=== PATIENT | female | born 1965 | race Two or more races ===

== ENCOUNTER 2016-08-15 09:18 | Emergency (ER) | payer OTHER ==
--- NOTE | 2016-08-15 09:33 | PDOC ---
History of Present Illness - General History Source: Patient Exam Limitations: No Limitations - History of Present Illness Initial Comments: 08/15/16 09:58 The patient is a 51 year old female, with a significant past medical history of anemia and depression who presents to the emergency department s/p mechanical fall, occurring today. The patient reports slipping and falling outside while going to work. She reports after falling being able to ambulate and went to work , feeling her regular baseline. She denies any head trauma. She notes after the fall feeling dizzy and having numbness/tingling in her upper extremities, lying down with no alleviation and worsening of her symptoms. 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 She reports as a result of the fall also having a mild diffuse headache accompanied with lightheadedness and numbness /tingling in her LEs and UEs. She ranks her headache pain a 7/10 in pain intensity. She denies any recent travel. She denies recent fever, chills, and dizziness. She denies recent nausea, vomit, diarrhea and constipation. Allergies: NKA Past surgical history: Breast Augmentation Social history: Nonsmoker. Denies EtOH and drug use. PCP: Natalia Ramirez <Osman Batista - Last Filed: 08/15/16 11:23> - General History Source: Patient Exam Limitations: No Limitations <oLis Uribe - Last Filed: 08/15/16 11:36> - General Stated Complaint: FALL Past History <Osman Batista - Last Filed: 08/15/16 11:23> - Past Medical History Asthma: No Diabetes: No HTN: No Hypercholesterolemia: No - Psycho/Social/Smoking Cessation Hx Anxiety: No Suicidal Ideation: No Smoking Status: No Smoking History: Never smoked Number of Cigarettes Smoked Daily: 0 Hx Alcohol Use: No Drug/Substance Use Hx: No Substance Use Type: None <Lois Uribe - Last Filed: 08/15/16 11:36> - Past Medical History Allergies/Adverse Reactions: Allergies Allergy/AdvReac Type Severity Reaction Status Date / Time No Known Allergies Allergy Verified 08/15/16 09:36 Home Medications: Ambulatory Orders NK [No Known Home Medication] 08/15/16 Review of Systems - Review of Systems Able to Perform ROS?: Yes Comments:: 08/15/16 09:58 GENERAL/CONSTITUTIONAL: No: fever, chills, weakness, loss of appetite. HEAD, EYES, EARS, NOSE AND THROAT: No: change in vision, ear pain, discharge, sore throat, throat swelling. CARDIOVASCULAR: No: chest pain, lightheadedness, palpitations, syncope RESPIRATORY: No: cough, shortness of breath, wheezing, hemoptysis, stridor. GASTROINTESTINAL: No: nausea, vomiting, diarrhea, abdominal cramping, rectal bleeding, constipation. GENITOURINARY: No: dysuria, hematuria, frequency, urgency, flank pain. MUSCULOSKELETAL: No: back pain, neck pain, joint pain, muscle swelling or pain SKIN : No: lesions, pallor, rash or easy bruising. NEUROLOGIC: Yes: headache, dizzy, and lightheaded. No: paresthesias, weakness ENDOCRINE: No: unexplained weight gain or loss HEMATOLOGIC/LYMPHATIC: No: anemia, easy bleeding, swelling nodes. <Osman Batista - Last Filed: 08/15/16 11:23> *Physical Exam - Vital Signs Last Vital Signs Temp Pulse Resp BP Pulse Ox 97.7 F 62 18 124/87 100 08/15/16 09:33 08/15/16 09:33 08/15/16 09:33 08/15/16 09:33 08/15/16 09:33 - Physical Exam Comments: 08/15/16 09:58 GENERAL: The patient is in no acute distress. HEAD: Normal with no signs of trauma. EYES: PERRLA, EOMI, sclera anicteric, conjunctiva clear. ENT: Ears normal, nares patent, oropharynx clear without exudates. Moist mucous membranes. NECK: Normal range of motion, supple without lymphadenopathy, JVD, or masses. LUNGS: Breath sounds equal, clear to auscultation bilaterally. No wheezes, and no crackles. HEART: Regular rate and rhythm, normal S1 and S2 without murmur, rub or gallop. ABDOMEN: Soft, nontender, normoactive bowel sounds. No guarding, no rebound. No masses palpable. EXTREMITIES: Normal range of motion, no edema. No clubbing or cyanosis. No erythema, or tenderness. NEUROLOGICAL: Cranial nerves II through XII grossly intact. Normal speech. No focal neurological deficits. MUSCULOSKELETAL: Mild lumbar tenderness, no CVA tenderness SKIN: Warm, Dry, normal turgor, no rashes or lesions noted. <Osman Batista - Last Filed: 08/15/16 11:23> Heart Score/ECG Review #1 ECG reviewed & interpreted by me at: 09:57 General ECG Interpretation: Sinus Rhythm, Normal Rate, Normal Intervals, No acute ischemic changes <Lois Uribe - Last Filed: 08/15/16 11:36> ED Treatment Course - LABORATORY CBC & Chemistry Diagram: 08/15/16 10:00 08/15/16 10:00 - RADIOLOGY Radiograph Interpretation: 08/15/16 11:[address] WITHOUT CONTRAST impressions reported by : Mild volume loss without evidence of acute intracranial pathology. <Osman Batista - Last Filed: 08/15/16 11:23> - LABORATORY CBC & Chemistry Diagram: 08/15/16 10:00 08/15/16 10:00 <Lois Uribe - Last Filed: 08/15/16 11:36> Medical Decision Making - Medical Decision Making 08/15/16 09:33 A portion of this note was documented by scribe services under my direction. I have reviewed the details of the note, within reason, and agree with the documentation with the following case summary and management plan written by me. Nursing documentation reviewed and incorporated into medical decision making 08/15/16 09:51 This is a 51-year-old female with no history of diabetes, hypertension, hyperlipidemia, heart disease, tobacco use who presents emergency department with a complaint of persistent dizziness status post a fall this morning. Patient states she was in route to work when she slipped and fell on the sidewalk. She was able to get up and reported to work. She did know that she was very dizzy (not vertiginous) when she arrived at work. 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 She went to the office and felt worse She laid down and felt more dizzy She noted that she had numbness around her mouth, arms, legs Possible loss of consciousness x 2 08/15/16 09:52 Will do basic labs (r/o electrolyte abn) Will do carboxyhemoglobin (r/o CO poisoning given pt was in the garage when she became more dizzy) Will do CT head (unlikely ICH, but pt fell this morning and reports LOC) Likely pt is concussed 08/15/16 10:53 Laboratory Tests 08/15/16 08/15/16 08/15/16 10:00 10:00 10:00 WBC 11.0 H Hgb 13.4 Hct 41.9 Plt Count 333 Neutrophils % 80.8 Lymphocytes % 13.2 ABG pH ABG pCO2 at Pt Temp ABG pO2 at Pt Temp ABG HCO3 BUN 17 Creatinine 0.8 Creatine Kinase 89 Troponin I < 0.02 Serum , Qual Negative 08/15/16 10:15 WBC Hgb Hct Plt Count Neutrophils % Lymphocytes % ABG pH 7.45 ABG pCO2 at Pt Temp 36.0 ABG pO2 at Pt Temp 105.0 H ABG HCO3 24.9 BUN Creatinine Creatine Kinase Troponin I Serum , Qual Awaiting CT Pt states she feels better 08/15/16 11:35 CT head: negative for acute ICH Will: Discharge to home Follow up with PMD <Lois Uribe - Last Filed: 08/15/16 11:36> *DC/Admit/Observation/Transfer - Attestations Scribe Attestion: 08/15/16 09:59 Documentation prepared by Osman Batista, acting as medical pathologist for Lois Uribe MD. <Osman Batista - Last Filed: 08/15/16 11:23> - Discharge Dispostion Admit: No <Lois Uribe - Last Filed: 08/15/16 11:36> Diagnosis at time of Disposition: Fall from standing Qualifiers: Encounter type: initial encounter Qualified Code(s): W19.XXXA - Unspecified fall, initial encounter Head trauma Qualifiers: Encounter type: initial encounter Qualified Code(s): S09.90XA - Unspecified injury of head, initial encounter Concussion Qualifiers: Encounter type: initial encounter Loss of consciousness presence/duration: with LOC of 30 min or less Qualified Code(s): S06.0X1A - Concussion with loss of consciousness of 30 minutes or less, initial encounter - Discharge Dispostion Disposition: HOME Condition at time of disposition: Improved - Referrals Referrals: Natalia Ramirez [Primary Care Provider] - - Patient Instructions Printed Discharge Instructions: DI for Closed Head Injury Additional Instructions: Rachel Thank you for coming in to the ER today Your labs are normal Your CT scan is normal You may have a concussion, causing you to feel dizzy Please follow up with your primary care physician Return to the ER for any other concerns or complaints - Post Discharge Activity Work/School Note: Back to Work
[2016-08-15 09:39] VITALS: TEMP 97.7; BMI 27.4
[2016-08-15] MEDS ORDERED: ACETAMINOPHEN 325 MG TABLET (FP) PO ONE (09:48)
[2016-08-15] MEDS ORDERED: ACETAMINOPHEN 325 MG TABLET (FP) ONE (10:00)
[2016-08-15 10:16] LABS: ARTERIAL BLD GAS O2 SATURATION 98.3 % (90-98.9); ARTERIAL BLOOD GAS BASE EXCESS 1.7 meq/l (-2-2); ARTERIAL BLOOD GAS HCO3 24.9 meq/L (22-26); ARTERIAL BLOOD GAS pH 7.45 (7.35-7.45)
[2016-08-15 10:17] LABS: ALLENS TEST POSITIVE; ART PUNCT SITE LEFT BRACHIAL; LPM/O2% N; METHEMOGLOBIN 1.2 % (0.4-1.5); PT. ON O2? NO; TYPE OF O2 R/A
[2016-08-15 10:20] LABS: BASOPHIL 0.4 % (0-2.0); EOSINOPHIL 0.1 % (0-4.5); MCH 24.5 pg (25.7-33.7); MEAN CELL VOLUME 76.4 fl (80-96); MEAN PLT VOLUME 8.3 fl (7.5-11.1); NEUTROPHILS 80.8 % (42.8-82.8); PLATELET COUNT 333 K/MM3 (134-434); RDW 18.8 % (11.6-15.6)
[2016-08-15 10:35] LABS: ALBUMIN 4.1 g/dl (3.4-5.0); ANION GAP 12 (8-16); BILIRUBIN,TOTAL 0.3 mg/dL (0.2-1.0); CALCIUM 9.5 mg/dL (8.5-10.1); CO2 28 mmol/L (21-32); CREATININE 0.8 mg/dL (0.55-1.02); GLUCOSE,RANDOM 97 mg/dL (74-106); SGOT/AST 15 U/L (15-37); SGPT/ALT 19 U/L (12-78); TOT PROT 8.1 g/dl (6.4-8.2)
[2016-08-15 10:37] LABS: ALK PHOS 73 U/L (45-117); TROPONIN I < 0.02 ng/ml (0.00-0.05)
[2016-08-15 12:07] VITALS: BP 123/78; PULSE 70
--- NOTE | 2016-08-15 15:48 | EKG ---
Test Reason : Blood Pressure : / mmHG Vent. Rate : 066 BPM Atrial Rate : 066 BPM P-R Int : 142 ms QRS Dur : 084 ms QT Int : 388 ms P-R-T Axes : 025 038 024 degrees QTc Int : 406 ms NORMAL SINUS RHYTHM NORMAL ECG NO PREVIOUS ECGS AVAILABLE Confirmed by EDWARD CEDENO MD ([id number]) on 08/15/2016 3:48:23 PM Referred By: Confirmed By:EDWARD CEDENO MD
== END 2016-08-15 12:07 | disposition home or self-care (01) ==
LOC: JER 09:18
DX: S06.0X1A Concussion with loss of consciousness of 30 minutes or less, initial encounter (principal); W18.30XA Fall on same level, unspecified, initial encounter; Y93.01 Activity, walking, marching and hiking; Y92.410 Unspecified street and highway as the place of occurrence of the external cause
CPT/HCPCS: 36415; 36600; 70450-TC; 80053; 82375; 82550; 82803; 83050; 84484; 84703; 85025; 93005; 93010; 99283-25

== ENCOUNTER 2017-06-21 18:45 | Emergency (ER) | payer OTHER ==
[2017-06-21 18:57] VITALS: BP 150/82; PULSE 82; TEMP 100.3; BMI 28.3
--- NOTE | 2017-06-21 21:14 | PDOC ---
History of Present Illness - General History Source: Patient Exam Limitations: No Limitations - History of Present Illness Initial Comments: 06/21/17 22:44 Patient is a 51 year old female with a significant past medical history of anemia and depression who presents to the ED with complaints of fever and throat pain that began 6 days ago. Patient reports experiencing sudden onset of fever and throat pain 6 days ago while at home with no signs of subsiding. She reports taking advil for pain with no relief. Patient reports experiencing left flank pain 4 days ago suddenly while at home. She states left flank pain is a constant non radiating sharp 9/10 pain, but is unsure if it is related to her fever and throat symptoms. Patient reports experiencing dark urine and urinary frequency that prompted her to come to the ED for further evaluation. Denies chest pain, SOB. Denies nausea, vomiting. Denies fevers chills. Denies out of state travel. Denies any other symptoms. Allergies: None Surgical history: Breast Augmentation Social history: No smoking. No alcohol. No illicit drugs. PMD: Dr. Natalia Ramirez <Mike Bingham - Last Filed: 06/21/17 22:44> <Kenia Francis - Last Filed: 06/22/17 04:58> - General Chief Complaint: Pain Stated Complaint: HEADACHE Time Seen by Provider: 06/21/17 20:27 Past History <Mike Bingham - Last Filed: 06/21/17 22:44> - Past Medical History Anemia: Yes Asthma: No COPD: No Diabetes: No HTN: No Hypercholesterolemia: No Psychiatric Problems: Yes (h/o Depression) - Suicide/Smoking/Psychosocial Hx Smoking Status: No Smoking History: Never smoked Number of Cigarettes Smoked Daily: 0 Hx Alcohol Use: No Drug/Substance Use Hx: No Substance Use Type: None <Kenia Francis - Last Filed: 06/22/17 04:58> - Past Medical History Allergies/Adverse Reactions: Allergies Allergy/AdvReac Type Severity Reaction Status Date / Time No Known Allergies Allergy Verified 06/21/17 18:57 Home Medications: Ambulatory Orders Nitrofurantoin Monohyd/M-Cryst [Macrobid -] 100 mg PO BID #14 capsule 06/21/17 Gentamicin 0.3% Eye Drops - 1 drop OS Q3H #1 dropsbtl 12/18/17 Review of Systems - Review of Systems Able to Perform ROS?: Yes Comments:: 06/21/17 22:44 GENERAL/CONSTITUTIONAL: +Fever No chills. No weakness. HEAD, EYES, EARS, NOSE AND THROAT: +Throat pain. No change in vision. No ear pain or discharge. CARDIOVASCULAR: No chest pain or shortness of breath. RESPIRATORY: No cough, wheezing, or hemoptysis. GASTROINTESTINAL: No nausea, vomiting, diarrhea or constipation. GENITOURINARY: +Urinary frequency. No dysuria, change in urination. MUSCULOSKELETAL: +Left flank pain. No joint or muscle swelling.. No neck or back pain. SKIN: No rash NEUROLOGIC: No headache, vertigo, loss of consciousness, or change in strength/ sensation. ENDOCRINE: No increased thirst. No abnormal weight change. HEMATOLOGIC/LYMPHATIC: No anemia, easy bleeding, or history of blood clots. ALLERGIC/IMMUNOLOGIC: No hives or skin allergy. All Other Systems: Reviewed and Negative <Mike Bingham - Last Filed: 06/21/17 22:44> *Physical Exam - Vital Signs Last Vital Signs Temp Pulse Resp BP Pulse Ox 100.3 F H 82 20 150/82 100 06/21/17 18:54 06/21/17 18:54 06/21/17 18:54 06/21/17 18:54 06/21/17 18:54 - Physical Exam Comments: 06/21/17 22:44 GENERAL: Awake, alert, and fully oriented, in no acute distress HEAD: No signs of trauma EYES: +Left eye redness sclera anicteric, ENT: Auricles normal inspection, hearing grossly normal, nares patent, oropharynx clear without exudates. Moist mucosa NECK: Normal ROM, supple, no lymphadenopathy, JVD, or masses LUNGS: Breath sounds equal, clear to auscultation bilaterally. No wheezes, and no crackles HEART: Regular rate and rhythm, normal S1 and S2, no murmurs, rubs or gallops ABDOMEN: +Minimal left flank tenderness., (Patient improving with IV tylenol given) Soft, nontender, normoactive bowel sounds. No guarding, no rebound. No masses EXTREMITIES: Normal range of motion, no edema. No clubbing or cyanosis. No cords, erythema, or tenderness NEUROLOGICAL: Cranial nerves II through XII grossly intact. Normal speech, normal gait SKIN: Warm, Dry, normal turgor, no rashes or lesions noted. <ZacheryMike - Last Filed: 06/21/17 22:44> - Vital Signs Last Vital Signs Temp Pulse Resp BP Pulse Ox 100.3 F H 82 20 150/82 100 06/21/17 18:54 06/21/17 18:54 06/21/17 18:54 06/21/17 18:54 06/21/17 18:54 <Kenia Francis - Last Filed: 06/22/17 04:58> ED Treatment Course - LABORATORY CBC & Chemistry Diagram: 06/21/17 21:45 06/21/17 21:45 - ADDITIONAL ORDERS Additional order review: Laboratory Results 06/21/17 06/21/17 21:45 21:34 Sodium Cancelled Potassium Cancelled Chloride Cancelled Carbon Dioxide Cancelled Anion Gap Cancelled BUN Cancelled Creatinine Cancelled Creat Clearance w eGFR Cancelled Random Glucose Cancelled Calcium Cancelled Total Bilirubin Cancelled AST Cancelled ALT Cancelled Alkaline Phosphatase Cancelled Total Protein Cancelled Albumin Cancelled Urine Color Yellow Urine Appearance Slcloudy Urine pH 6.0 Ur Specific [place] 1.023 Urine Protein 1+ H Urine Glucose (UA) Negative Urine Ketones Negative Urine Blood 1+ H Urine Nitrite Negative Urine Bilirubin Negative Urine Urobilinogen 2.0 H Urine WBC (Auto) 20 Urine RBC (Auto) 13 Ur Epithelial Cells Rare Hyaline Casts 2 Urine Mucus Many 06/21/17 21:45 Influenza Types A,B Antigen (ERIKA) - Final Nasopharyngeal Swab - Final 06/21/17 21:45 RBC 5.00 MCV 76.7 L MCHC 31.4 L RDW 15.9 H D MPV 7.7 Neutrophils % 58.6 D Lymphocytes % 31.3 D Monocytes % 8.2 Eosinophils % 0.6 D Basophils % 1.3 D - Medications Given in the ED: ED Medications Discontinued Medications Generic Name Dose Route Start Last Admin Trade Name Shahla PRN Reason Stop Dose Admin Acetaminophen 1,000 mg 06/21/17 21:18 06/21/17 21:44 Ofirmev Injection - IVPB 06/21/17 21:19 1,000 mg ONCE ONE Administration Sodium Chloride 500 ml 06/21/17 21:18 06/21/17 21:44 Normal Saline - IV 06/21/17 21:19 500 ml ONCE ONE Administration <Mike Bingham - Last Filed: 06/21/17 22:44> - LABORATORY CBC & Chemistry Diagram: 06/21/17 21:45 06/21/17 22:50 <Kenia Francis - Last Filed: 06/22/17 04:58> Medical Decision Making - Medical Decision Making 06/21/17 22:24 Pt comes with fever and abd pain of lower abd that began 2 weeks ago. She states that she was taking pain meds x 1 week without relief. Now she comes because she feels unwell and weak. She has flu like symptoms. She states that her 18 yo son has a sore throat and flu like symptoms. Pt has negative flu culture here. Her exam is normal, only left sided pink eye and she has a minimal left flank pain 06/22/17 02:27 Patient Name: MANNY HANSEN THIS IS A PRELIMINARY REPORT FROM [facility] DATE OF SERVICE: 2017-06-22 00:29:33 IMAGES: 465 EXAM: CT ABDOMEN AND PELVIS WITHOUT CONTRAST No nephrolithiasis, ureterolithiasis or obstructive uropathy. No bladder calculi. Unremarkable pancreas and gallbladder. No bowel obstruction, colitis, free fluid or free air. Normal appendix. Leiomyomatous uterus. Stranding in prepubic/inguinal canal soft tissues, possibly subcutaneous edema. Bilateral breast implants 06/22/17 02:32 Pt's skin and soft tissue in the inguinal and prepupica area is normal; no rash ; no redness; no cellulitis; no pain with palpation. 06/22/17 04:56 Pt feeling vastly improved; ready to go home. <Kenia Francis - Last Filed: 06/22/17 04:58> *DC/Admit/Observation/Transfer - Attestations Scribe Attestion: 06/21/17 22:45 Documentation prepared by Mike Bingham, acting as medical scientific liaison for Kenia Francis MD/DO. <Mike Bingham - Last Filed: 06/21/17 22:44> - Discharge Dispostion Admit: No <Kenia Francis - Last Filed: 06/22/17 04:58> Diagnosis at time of Disposition: UTI (urinary tract infection), Conjunctivitis - Discharge Dispostion Disposition: HOME Condition at time of disposition: Stable - Prescriptions Prescriptions: Nitrofurantoin Monohyd/M-Cryst [Macrobid -] 100 mg PO BID #14 capsule - Referrals Referrals: Natalia Ramirez [Primary Care Provider] - Zack Bryant MD [Staff Physician] - - Patient Instructions Printed Discharge Instructions: Urinary Tract Infection, Conjunctivitis - Post Discharge Activity Forms/Work/School Notes: Back to Work
[2017-06-21] MEDS ORDERED: SODIUM CHLORIDE 0.9% 500 ML INFUS.BAG IV ONE (21:18)
[2017-06-21] MEDS ORDERED: ACETAMINOPHEN 1000 MG/100 ML VIAL (NON FORMULARY) IVPB ONE (21:18)
[2017-06-21] MEDS ORDERED: ACETAMINOPHEN INJECTION 100 ML IVPB ONE (21:27)
[2017-06-21 21:51] LABS: BASO % 1.3 % (0-2.0); EOS % 0.6 % (0-4.5); MCH 24.1 pg (25.7-33.7); MCHC 31.4 g/dl (32.0-36.0); MEAN CELL VOLUME 76.7 fl (80-96); MEAN PLT VOLUME 7.7 fl (7.5-11.1); NEUT % 58.6 % (42.8-82.8); PLATELET COUNT 445 K/MM3 (134-434); RDW 15.9 % (11.6-15.6); WHITE BLOOD COUNT 12.3 K/mm3 (4.0-10.0)
[2017-06-21 21:51] LABS: URINE APPEARANCE SLCLOUDY; URINE BILIRUBIN NEGATIVE (NEGATIVE); URINE BLOOD 1+ (NEGATIVE); URINE COLOR YELLOW; URINE GLUCOSE (UA) NEGATIVE (NEGATIVE); URINE KETONE NEGATIVE (NEGATIVE); URINE NITRITE NEGATIVE (NEGATIVE)
[2017-06-21 21:53] LABS: URINE LEUK ESTERASE 2+ (NEGATIVE); URINE PROTEIN 1+ (NEGATIVE)
[2017-06-21 21:54] LABS: URINE HYALINE CAST 2 /lpf; URINE MUCUS MANY; URINE RBC 13 /hpf (0-3); URINE WBC 20 /hpf (3-5)
[2017-06-21] MEDS ORDERED: CEFTRIAXONE 1,000 MG in DEXTROSE 5%-WATER - 50 ML IVPB ONE (21:58)
[2017-06-21] MEDS ORDERED: CEFTRIAXONE 1 GM/50 ML BAG ONE (22:40)
[2017-06-21 23:19] LABS: ANION GAP 7 (8-16); BILIRUBIN,TOTAL 0.3 mg/dL (0.2-1.0); CO2 23 mmol/L (21-32); CREATININE 0.7 mg/dL (0.55-1.02); GLUCOSE,RANDOM 98 mg/dL (74-106); SGPT/ALT 16 U/L (12-78); TOT PROT 6.9 g/dl (6.4-8.2)
[2017-06-21 23:20] LABS: ALK PHOS 75 U/L (45-117)
[2017-06-21 23:21] LABS: SGOT/AST 23 U/L (15-37)
[2017-06-22] MEDS ORDERED: GENTAMICIN SULFATE 0.3% OPHTHALMIC (EYE DROPS) 5ML BOTTLE OS ONE (02:33)
[2017-06-22] MEDS ORDERED: GENTAMICIN SULFATE 0.3% OPHTHALMIC (EYE DROPS) 5ML BOTTLE ONE (03:51)
[2017-06-22 17:31] LABS: URINE LEUK ESTERASE TRACE (NEGATIVE)
== END 2017-06-22 03:58 | disposition home or self-care (01) ==
LOC: JER 18:45
PROC: 3E0337Z Introduction of Electrolytic and Water Balance Substance into Peripheral Vein, Percutaneous Approach (ICD-10-PCS; principal; 2017-06-21)
PROC: 3E03329 Introduction of Other Anti-infective into Peripheral Vein, Percutaneous Approach (ICD-10-PCS; 2017-06-21)
DX: N39.0 Urinary tract infection, site not specified (principal); H10.9 Unspecified conjunctivitis; D64.9 Anemia, unspecified; F32.9 Major depressive disorder, single episode, unspecified
CPT/HCPCS: 36415; 74176-TC; 80053; 81003; 81015; 85025; 87086; 87804; 96365; 96375; 99282-25

== ENCOUNTER 2018-04-16 22:07 | Emergency (ER) | payer OTHER ==
--- NOTE | 2018-04-16 22:51 | PDOC ---
History of Present Illness <Kenia Francis - Last Filed: 04/17/18 01:12> - General History Source: Patient Exam Limitations: Language Barrier - History of Present Illness Initial Comments: 04/16/18 22:49 Pt is a 52yo f with PMH of anemia presenting to ED s/p mechanical fall that happened around 9:30pm today. Pt says she was walking down some steps outside and missed a step. She fell on her buttocks and slid down 2 steps. She denies hitting her head or losing consciousness. She called out for help and her neighbor came out and then called the ambulance. She was able to walk after the fall. She admits to pain in her lower back and L buttock, and L wrist. Denies headache, neck pain, upper back pain, LOC. <Alexa Prather - Last Filed: 04/19/18 00:03> - General Stated Complaint: FALL Time Seen by Provider: 04/16/18 22:22 Past History <Kenia Francis - Last Filed: 04/17/18 01:12> - Past Medical History Anemia: Yes Asthma: No COPD: No Diabetes: No HTN: No Hypercholesterolemia: No Psychiatric Problems: Yes (h/o Depression) - Suicide/Smoking/Psychosocial Hx Smoking Status: No Smoking History: Never smoked Number of Cigarettes Smoked Daily: 0 Hx Alcohol Use: No Drug/Substance Use Hx: No Substance Use Type: None <Alexa Prather - Last Filed: 04/19/18 00:03> - Past Medical History Allergies/Adverse Reactions: Allergies Allergy/AdvReac Type Severity Reaction Status Date / Time No Known Allergies Allergy Verified 04/17/18 02:24 Home Medications: Ambulatory Orders Acetaminophen [Tylenol] 650 mg PO PRN 04/17/18 Ibuprofen 800 mg PO TID #21 tablet 04/17/18 Review of Systems - Review of Systems Able to Perform ROS?: Yes Constitutional: No: Chills, Fever HEENTM: No: Recent change in vision Respiratory: No: Cough, Shortness of Breath Cardiac (ROS): No: Chest Pain, Lightheadedness, Palpitations, Syncope ABD/GI: No: Constipated, Diarrhea, Nausea, Vomiting, Abdominal cramping : No: Burning Musculoskeletal: Yes: See HPI, Back Pain, Joint Pain (L wrist pain). No: Muscle Weakness Integumentary: No: Lesions, Rash Neurological: No: Headache, Numbness, Paresthesia, Tingling, Weakness <Alexa Prather - Last Filed: 04/19/18 00:03> *Physical Exam - Vital Signs Last Vital Signs Temp Pulse Resp BP Pulse Ox 97.9 F 56 L 20 155/96 97 04/16/18 22:59 04/16/18 22:59 04/16/18 22:59 04/16/18 22:59 04/16/18 22:59 <Kenia Francis - Last Filed: 04/17/18 01:12> - Physical Exam General Appearance: Yes: Appropriately Dressed, Mild Distress, Obese HEENT: positive: EOMI, GANESH, Normal ENT Inspection Neck: positive: Trachea midline, Supple. negative: Lymphadenopathy (R), Lymphadenopathy (L) Respiratory/Chest: positive: Lungs Clear, Normal Breath Sounds. negative: Crackles, Rales, Rhonchi, Stridor Cardiovascular: positive: Regular Rhythm, Regular Rate, S1, S2. negative: Edema , JVD, Murmur Vascular Pulses: Carotid (R): 2+, Carotid (L): 2+, Dorsalis-Pedis (R): 2+, Doralis-Pedis (L): 2+ Gastrointestinal/Abdominal: positive: Normal Bowel Sounds, Soft. negative: Guarding, Rebound, Tenderness Musculoskeletal: positive: Decreased Range of Motion, Other (L posterior hip ttp. L wrist tender to palpation. Full ROM. ). negative: CVA Tenderness Extremity: positive: Normal Capillary Refill, Pelvis Stable. negative: Pedal Edema, Swelling Integumentary: positive: Normal Color, Dry, Warm Neurologic: positive: pharmacist manager II-XII NML intact, Fully Oriented, Alert, Normal Mood/ Affect, Normal Response, Motor Strength 5/5 <Alexa Prather - Last Filed: 04/19/18 00:03> ED Treatment Course - Medications Given in the ED: ED Medications Discontinued Medications Generic Name Dose Route Start Last Admin Trade Name Freq PRN Reason Stop Dose Admin Ketorolac Tromethamine 30 mg 04/17/18 00:52 04/17/18 01:11 Toradol Injection - IM 04/17/18 00:53 30 mg ONCE ONE Administration Oxycodone/Acetaminophen 2 combo 04/16/18 23:20 10/13/18 00:04 Percocet 5/325 - PO 04/16/18 23:21 2 combo ONCE ONE Administration <Kenia Francis - Last Filed: 04/17/18 01:12> - RADIOLOGY Radiology Studies Ordered: Category Date Time Status LUMBAR SPINE CT W/O CONTRAST [CT] Stat CT Scan 04/16/18 22:[address] WITHOUT CONTRAST [CT] Stat CT Scan 04/16/18 22:44 Ordered <YamilkaAlexa - Last Filed: 04/19/18 00:03> Medical Decision Making - Medical Decision Making 04/19/18 00:00 Pt is a 52yo f with PMH of anemia presenting to ED s/p mechanical fall that happened around 9:30pm today. Pain to L buttock and L wrist. Vitals: wnl PE: L posterior hip tenderness, no neurological deficits. DDX: fracture, sprain. orderd CT lumbar and pelvis. Xray wrist CT negative for fracture. Xray negative for fracture. Pt given percocet for pain. Pt reported some relief. Pt then given Toradol. Pt reported more relief, but still felt pain. Pt still able to ambulate. No fractures, hemodynamically stable, ambulatory, pain somewhat controlled with NSAIDs. Pt can be dc home. Given rx for ibuprofen. Given strict return precautions. Pt agreed to plan. <YamilkaAlexa - Last Filed: 04/19/18 00:03> *DC/Admit/Observation/Transfer <Kenia Francis - Last Filed: 04/17/18 01:12> - Discharge Dispostion Decision to Admit order: No <YamilkaAlexa - Last Filed: 04/19/18 00:03> Diagnosis at time of Disposition: Fall (on) (from) other stairs and steps, initial encounter Back pain Qualifiers: Back pain location: low back pain Chronicity: acute Back pain laterality: left Sciatica presence: without sciatica Qualified Code(s): M54.5 - Low back pain - Discharge Dispostion Disposition: HOME Condition at time of disposition: Good - Prescriptions Prescriptions: Ibuprofen 800 mg PO TID #21 tablet - Patient Instructions Printed Discharge Instructions: DI for Low Back Pain, How to Prevent Falls Additional Instructions: You were seen here today for evaluation of low back pain. The CT scan was normal. I have sent a prescription over for ibuprofen. Take as directed. Please see your doctor for further evaluation. You can also see orthopedics ( Dr. Rebolledo [phone]) Come back to the emergency room if: pain gets worse, you are unable to walk, you have numbness/tingling, or if any new concerning symptom develops. Thank you - Post Discharge Activity Forms/Work/School Notes: Back to Work
[2018-04-16 23:01] VITALS: BP 155/96; PULSE 56; TEMP 97.9; BMI 27.4
--- NOTE | 2018-04-16 23:20 | PDOC ---
Attending Attestation - HPI HPI: This patient is a 52 year old female with a significant past medical history of anemia and depression who presents to the ED s/p fall. Patient reports that she was going down her steps outside her house when she slipped and fell down the last two steps. She states that she fell on her butt and injured her lower back. She called her neighbor for help who called 911 and she was able to ambulate to the stretcher. She is now complaining of sacral and lumbar pain. She also reports some cramping and numbness in her left leg. Allergies: None Surgical history: Breast Augmentation Social history: No smoking. No alcohol. No illicit drugs. PMD: Dr. Natalia Ramirez <Evette Gudino - Last Filed: 04/17/18 00:28> - Resident Resident Name: Alexa Prather - ED Attending Attestation I have performed the following: I have examined & evaluated the patient, The case was reviewed & discussed with the resident, I agree w/resident's findings & plan - Physicial Exam PE: 04/17/18 02:20 Pt has no midline tenderness of C or T spine; only paraspinal strain. Pain at the LS spine Pt has FROM of her legs bilat; she is able to range arms. She has slight tenderness at the Left scaphoid Heart lungs clear and abd soft NT ND. - Medical Decision Making 04/17/18 01:03 Patient Name: MANNY HANSEN THIS IS A PRELIMINARY REPORT FROM [facility] DATE OF SERVICE: 2018-04-16 23:50:19 IMAGES: [id number] EXAM: PELVIS CT WITHOUT CONTRAST HISTORY: Rule out fracture COMPARISON: None. FINDINGS: The bony pelvis is intact The hips are intact without dislocation. The joint spaces are maintained. No evidence of joint effusions Degenerative changes in the visualized lower lumbar spine Myomatous uterus 04/17/18 01:04 Patient Name: MANNY HANSEN THIS IS A PRELIMINARY REPORT FROM [facility] DATE OF SERVICE: 2018-04-16 23:44:23 IMAGES: [id number] EXAM: LUMBAR SPINE CT W/O CONTRAST HISTORY: Fall COMPARISON: None. FINDINGS: There is no fracture or subluxation. Bony alignment is normal The vertebral body heights and disc spaces are preserved Likely reactive sclerosis in the inferior endplate of L4 Facet arthropathy predominantly at L4/L5 and L5/S1 and greater on the left side Bony impingement on the left L4/L5 neural foramen secondary to a posterior osteophyte and hypertrophic facet arthropathy The paraspinal soft tissues are grossly normal 04/17/18 02:20 Left Wrist: pt has slight scaphoid tenderness; she has FROM of fingers and she is able to range her hand and wrist. No deformity Pt will be placed in an ann wrap for comfort. Analgesics in the ER helped a bit. Pt will be senthome with OTC analgesia, rest, ice. Follow with PMD. Work note given for an extra day of rest. <Kenia Francis - Last Filed: 04/18/18 00:29>
[2018-04-17] MEDS ORDERED: KETOROLAC TROMETHAMINE 30 MG/1 ML VIAL IM ONE (00:52)
[2018-04-17] MEDS ORDERED: KETOROLAC TROMETHAMINE 30 MG/1 ML VIAL ONE (01:04)
== END 2018-04-17 02:26 | disposition home or self-care (01) ==
LOC: JER 22:07
PROC: 3E0233Z Introduction of Anti-inflammatory into Muscle, Percutaneous Approach (ICD-10-PCS; principal; 2018-04-16)
DX: M54.5 Low back pain (principal); W10.9XXA Fall (on) (from) unspecified stairs and steps, initial encounter; Y93.89 Activity, other specified; Y92.89 Other specified places as the place of occurrence of the external cause; F32.9 Major depressive disorder, single episode, unspecified
CPT/HCPCS: 72131-TC; 72192-TC; 73110-TC-LR-FY; 73130-TC-LR-FY; 96372; 99282-25

== ENCOUNTER 2018-06-02 09:24 | Emergency (ER) | payer OTHER ==
[2018-06-02 09:47] VITALS: BP 132/93; PULSE 63; TEMP 97.8; BMI 27.4
== END 2018-06-02 11:05 | disposition left against medical advice (07) ==
LOC: JERFT 09:24
DX: Z53.21 Procedure and treatment not carried out due to patient leaving prior to being seen by health care provider (principal)
CPT/HCPCS: 99281-25

== ENCOUNTER 2018-07-21 16:17 | Emergency (ER) | payer OTHER ==
--- NOTE | 2018-07-21 16:45 | PDOC ---
Rapid Medical Evaluation Medical Evaluation: Allergies Allergy/AdvReac Type Severity Reaction Status Date / Time No Known Allergies Allergy Verified 06/02/18 09:47 I have performed a brief in-person evaluation of this patient. The patient presents with a chief complaint of: States BP was elevated when she checked at work on 07/16 and then high again 2 days ago; does not recall exact number; mentions having mild PENNY; denies vomiting, sob, cp, numbness/tingling/ weakness of extremities; has no hx of HTN and does not take meds for it Pertinent physical exam findings: In NAD, no focal deficits I have ordered the following: Nothing The patient will proceed to the ED for further evaluation. 07/21/18 16:41 Discharge Disposition - Referrals Referrals: Natalia Ramirez [Primary Care Provider] - - Patient Instructions - Post Discharge Activity
[2018-07-21 16:46] VITALS: BP 167/89; PULSE 59; TEMP 98.6; BMI 27.4
== END 2018-07-21 17:55 | disposition home or self-care (01) ==
LOC: JERFT 16:17 → JER 16:17 → JERFT 17:55
DX: R03.0 Elevated blood-pressure reading, without diagnosis of hypertension (principal)
CPT/HCPCS: 99281-25

== ENCOUNTER 2018-08-16 10:06 | Emergency (ER) | payer OTHER ==
[2018-08-16 10:16] VITALS: PULSE 64; TEMP 98.6; BMI 27.4
[2018-08-16] MEDS ORDERED: IBUPROFEN 600 MG TABLET (FP) PO ONE ×2 (11:16→11:23)
[2018-08-16 11:23] VITALS: BP 150/90
--- NOTE | 2018-08-16 11:25 | PDOC ---
History of Present Illness - General Chief Complaint: Eye Problem Stated Complaint: R EYE REDNESS / PAIN Time Seen by Provider: 08/16/18 11:02 History Source: Patient Exam Limitations: No Limitations - History of Present Illness Initial Comments: 08/16/18 11:18 Itching came for evaluation of red painful right eye. States woke up 3 days ago with the redness surrounding her pupil and some mild visual changes and diminishing. Denies discharge, denies any recent trauma, denies any history of same. Timing/Duration: unsure Severity: mild, moderate Past History - Travel Traveled outside of the country in the last 30 days: No Close contact w/someone who was outside of country & ill: No - Past Medical History Allergies/Adverse Reactions: Allergies Allergy/AdvReac Type Severity Reaction Status Date / Time No Known Allergies Allergy Verified 06/02/18 09:47 Home Medications: Ambulatory Orders Acetaminophen [Tylenol] 650 mg PO PRN 04/17/18 Ibuprofen 800 mg PO TID #21 tablet 04/17/18 Anemia: Yes Asthma: No COPD: No Diabetes: No HTN: No Hypercholesterolemia: No Psychiatric Problems: Yes (h/o Depression) - Immunization History Immunization Up to Date: No - Suicide/Smoking/Psychosocial Hx Smoking Status: No Smoking History: Never smoked Have you smoked in the past 12 months: No Number of Cigarettes Smoked Daily: 0 Information on smoking cessation initiated: No Hx Alcohol Use: No Drug/Substance Use Hx: No Substance Use Type: None *Physical Exam - Vital Signs Last Vital Signs Temp Pulse Resp BP Pulse Ox 98.6 F 64 16 164/97 100 08/16/18 10:12 08/16/18 10:12 08/16/18 10:12 08/16/18 10:12 08/16/18 10:12 - Physical Exam General Appearance: Yes: Nourished, Appropriately Dressed, Apparent Distress, Mild Distress HEENT: positive: GANESH (with injected right eye with faint ciliary flush, pupil reactive the patient has 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 negative: TMs Normal Respiratory/Chest: positive: Lungs Clear Integumentary: positive: Normal Color, Dry Neurologic: positive: ore mixer II-XII NML intact, Fully Oriented, Alert, Normal Mood/ Affect, Normal Response, Motor Strength 5/5 Moderate Sedation - Procedure Monitoring Vital Signs: Procedure Monitoring Vital Signs Temperature 98.6 F 08/16/18 10:12 Pulse Rate 64 08/16/18 10:12 Respiratory Rate 16 08/16/18 10:12 Blood Pressure 164/97 08/16/18 10:12 O2 Sat by Pulse Oximetry (%) 100 08/16/18 10:12 Medical Decision Making - Medical Decision Making 08/16/18 11:[address] Eugene office, who will receive patient for ophthalmology evaluation now. Patient updated to plan *DC/Admit/Observation/Transfer Diagnosis at time of Disposition: Acute right eye pain - Discharge Dispostion Disposition: HOME Condition at time of disposition: Stable Decision to Admit order: No - Referrals Referrals: Natalia Ramirez [Primary Care Provider] - Shiv Isabel MD [Staff Physician] - - Patient Instructions Printed Discharge Instructions: DI for Eye Pain Additional Instructions: Go directly to Dr. Isabel office for evaluation - Post Discharge Activity Forms/Work/School Notes: Back to Work
== END 2018-08-16 12:02 | disposition home or self-care (01) ==
LOC: JERFT 10:06
DX: H57.11 Ocular pain, right eye (principal); Z86.2 Personal history of diseases of the blood and blood-forming organs and certain disorders involving the immune mechanism; Z86.59 Personal history of other mental and behavioral disorders
CPT/HCPCS: 99281-25

== ENCOUNTER 2018-09-21 21:09 | Emergency (ER) | payer OTHER ==
--- NOTE | 2018-09-21 21:32 | PDOC ---
History of Present Illness - General Chief Complaint: Lightheaded Stated Complaint: DIZZINESS Time Seen by Provider: 09/21/18 21:32 History Source: Patient - History of Present Illness Initial Comments: 09/21/18 21:39 The patient is a 53 year old female with a PMH of HTN who presents to our ED c/ o headache. Headache has been occuring daily for the last 2 months and is frontal, throbbing, 7/10 without any triggering or relieving factors. Notes noxious smells in her apartment building from a basement auto repair shop which she associates with onset of symptoms. States she called her landlord henrique who called Anthony Gandara who came to her apartment and said there was no gas leak. As patient continued to have symptoms she came to the Emergency Department. NKDA Past History - Past Medical History Allergies/Adverse Reactions: Allergies Allergy/AdvReac Type Severity Reaction Status Date / Time No Known Allergies Allergy Verified 09/21/18 21:36 Home Medications: Ambulatory Orders NK [No Known Home Medication] 09/22/18 Anemia: Yes Asthma: No COPD: No Diabetes: No HTN: No Hypercholesterolemia: No Psychiatric Problems: Yes (h/o Depression) - Immunization History Immunization Up to Date: No - Suicide/Smoking/Psychosocial Hx Smoking Status: No Smoking History: Never smoked Have you smoked in the past 12 months: No Number of Cigarettes Smoked Daily: 0 Hx Alcohol Use: No Drug/Substance Use Hx: No Substance Use Type: None Review of Systems - Review of Systems Constitutional: No: Chills, Fever HEENTM: No: Blurred Vision, Recent change in vision Respiratory: No: Cough, Shortness of Breath Cardiac (ROS): No: Chest Pain, Lightheadedness, Palpitations, Syncope ABD/GI: No: Constipated, Diarrhea, Nausea, Vomiting : No: Burning, Dysuria *Physical Exam - Physical Exam General Appearance: Yes: Nourished, Appropriately Dressed HEENT: positive: EOMI, GANESH, Normal Voice, Sinus Tenderness, Hearing Grossly Normal Neck: positive: Trachea midline, Supple Respiratory/Chest: positive: Lungs Clear, Normal Breath Sounds Cardiovascular: positive: Regular Rhythm, S1, S2 Gastrointestinal/Abdominal: positive: Normal Bowel Sounds, Soft Extremity: positive: Normal Capillary Refill, Normal Inspection Integumentary: positive: Normal Color, Dry, Warm Neurologic: positive: parts consultant II-XII NML intact, Fully Oriented, Alert ED Treatment Course - LABORATORY CBC & Chemistry Diagram: 09/22/18 00:50 09/22/18 00:50 Medical Decision Making - Medical Decision Making 09/21/18 21:42 53 year female with headache. Not the worst headache of her life. Flucuating intensity. Hypertensive (179/93) other VS unremarkable. PE significant for frontal sinus tenderness. No neurologic deficit noted on exam. Will obtain Head CT to r/o SAH. ABG for Carboxyhemoglobin. Reassess. 09/22/18 00:[address] negative Mild sinus thickening c/w sinusitis Carboxyemoglobin pending 09/22/18 01:17 Patient refusing ABG Will discharge home with neurology follow-up and return precautions. I discussed the physical exam findings, ancillary test results and final diagnoses with the patient. I answered all of the patient's questions. The patient was satisfied with the care received and felt comfortable with the discharge plan and treatment plan. The patient will return to the Emergency Department with any new, persistent or worsening symptoms. *DC/Admit/Observation/Transfer Diagnosis at time of Disposition: Headache - Discharge Dispostion Disposition: HOME Condition at time of disposition: Good Decision to Admit order: No - Referrals Referrals: Med Triplett MD [Staff Physician] - - Patient Instructions Additional Instructions: You were evaluated today for your headache. A cat scan of your head and your labs showed no concerning findings. At this time you are safe for discharge home. Please make a follow-up appointment with a neurologist for evaluation of your headaches. We have provided you a referral or you can call your insurance company for a list of doctors. Return to the Emergency Department for any new/worsening/concerning symptoms including headache, shortness of breath, confusion or visual changes. - Post Discharge Activity
[2018-09-21 21:36] VITALS: BP 179/93; PULSE 61; TEMP 98.1; BMI 27.4
--- NOTE | 2018-09-21 21:37 | PDOC ---
Attending Attestation - HPI HPI: 09/21/18 22:42 The patient is a 53 year old female, with a significant past medical history of HTN, who presents to the emergency department with, 2-3 months of an intermittent frontal headache rated a 5/10. Patient notes her symptoms onset at the same time as a new garage opened up below her apartment. Patients landlord called [employer] today at which time they checked for carbon monoxide, no findings. She denies any photophobia or phonophobia. She denies recent fevers, chills, or dizziness. She denies recent nausea, vomit, diarrhea or constipation. She denies recent dysuria, frequency, urgency or hematuria. She denies recent chest pain or shortness of breath. Allergies: NKDA Past surgical history: Breast Augmentation. Social history: Nonsmoker. Denies EtOH use and recreational drug use. Primary Care Physician: Dr. Natalia Ramirez - Physicial Exam PE: 09/21/18 22:42 Agree with resident exam. <Eric Bain - Last Filed: 09/21/18 22:42> - Resident Resident Name: Arabella Lantigua - ED Attending Attestation I have performed the following: I have examined & evaluated the patient, The case was reviewed & discussed with the resident, I agree w/resident's findings & plan - Medical Decision Making 09/21/18 22:36 53-year-old female with several months of intermittent frontal headache with questionable exposure to fumes from a garage Plan for CT scan of the head and sinuses as well as carboxyhemoglobin IV Tylenol Plan for likely discharge home with outpatient follow-up pending results <Angeli Alfaro - Last Filed: 09/22/18 00:54> Attestations - Attestations 09/21/18 22:43 Documentation prepared by Eric Bain, acting as medical claims manager for Angeli Alfaro DO. <Eric Bain - Last Filed: 09/21/18 22:42>
[2018-09-21] MEDS ORDERED: ACETAMINOPHEN 1000 MG/100 ML VIAL (NON FORMULARY) IVPB ONE (22:25)
[2018-09-21] MEDS ORDERED: ACETAMINOPHEN INJECTION 100 ML IVPB ONE (22:38)
[2018-09-22 00:59] LABS: BASO % 1.2 % (0-2.0); EOS % 0.9 % (0-4.5); HEMATOCRIT 37.7 % (32.4-45.2); HEMOGLOBIN 13.1 GM/dL (10.7-15.3); LYMPH % 44.2 % (8-40); MCH 27.5 pg (25.7-33.7); MCHC 34.7 g/dl (32.0-36.0); MEAN CELL VOLUME 79.2 fl (80-96); MEAN PLT VOLUME 8.7 fl (7.5-11.1); MONO % 5.7 % (3.8-10.2); PLATELET COUNT 323 K/MM3 (134-434); RBC 4.76 M/mm3 (3.60-5.2); WHITE BLOOD COUNT 8.4 K/mm3 (4.0-10.0)
[2018-09-22 01:00] LABS: VENOUS PC02 47.1 mmHg (41-51); VENOUS PH 7.36 (7.31-7.41); VENOUS PO2 39.2 mmHg (30-40)
[2018-09-22 01:39] LABS: ALBUMIN 3.8 g/dl (3.4-5.0); ALK PHOS 86 U/L (45-117); ANION GAP 7 MMOL/L (8-16); BILIRUBIN,TOTAL 0.4 mg/dL (0.2-1); BLOOD UREA NITROGEN 13 mg/dL (7-18); CALCIUM 8.8 mg/dL (8.5-10.1); CHLORIDE 107 mmol/L (98-107); CO2 24 mmol/L (21-32); CREATININE 0.8 mg/dL (0.55-1.3); GLUCOSE,RANDOM 107 mg/dL (74-106); POTASSIUM 4.7 mmol/L (3.5-5.1); SGOT/AST 31 U/L (15-37); SGPT/ALT 19 U/L (13-61); SODIUM 138 mmol/L (136-145)
== END 2018-09-22 02:05 | disposition home or self-care (01) ==
LOC: JER 21:09
PROC: 3E033NZ Introduction of Analgesics, Hypnotics, Sedatives into Peripheral Vein, Percutaneous Approach (ICD-10-PCS; principal; 2018-09-21)
DX: J01.90 Acute sinusitis, unspecified (principal); R51 Headache
CPT/HCPCS: 36415; 70450-TC; 70486-TC; 80053; 82803; 85025; 96374; 99282-25; J0131

== ENCOUNTER 2020-08-26 20:00 | Emergency (ER) | payer OTHER ==
[2020-08-26 20:18] VITALS: BMI 30.1
[2020-08-26] MEDS ORDERED: ACETAMINOPHEN 325 MG TABLET (FP) PO ONE (21:28)
[2020-08-26] MEDS ORDERED: LIDOCAINE 5% TOPICAL PATCH TP ONE (21:28)
[2020-08-26] MEDS ORDERED: ACETAMINOPHEN 325 MG TABLET (FP) ONE (21:33)
[2020-08-26] MEDS ORDERED: LIDOCAINE 5% TOPICAL PATCH ONE (21:33)
[2020-08-26] MEDS ORDERED: METHOCARBAMOL 500 MG TABLET PO ONE (22:15)
[2020-08-26] MEDS ORDERED: METHOCARBAMOL 500 MG TABLET ONE (22:42)
[2020-08-26 22:55] VITALS: BP 154/97; PULSE 64; TEMP 97.8
[2020-08-27] MEDS ORDERED: LIDOCAINE PATCH REMOVAL MC SCH (10:00)
== END 2020-08-26 22:56 | disposition home or self-care (01) ==
LOC: JER 20:00
DX: M54.5 Low back pain (principal); M53.3 Sacrococcygeal disorders, not elsewhere classified
CPT/HCPCS: 72100-TC-FY; 72220-TC-FY; 73110-TC-LT-FY; 73130-TC-LT-FY; 99285-25